=== PATIENT | male | born 1985 | race Caucasian/White ===

== ENCOUNTER 2017-01-02 19:31 | Emergency (ER) | payer OTHER ==
[~2017-01-02] VITALS: Ht 185.4 cm; Wt 100.6 kg
[~2017-01-02 19:31] MED LIST: BACLOFEN10 MG PO; NAPROSYN500 MG PO; NOHOMEMEDS
[2017-01-02 19:44] VITALS: BP 142/85
== END 2017-01-02 22:39 | disposition left against medical advice (07) ==
LOC: EME 19:31
DX: Z04.1 Encounter for examination and observation following transport accident (principal); H92.01 Otalgia, right ear; H91.91 Unspecified hearing loss, right ear; F17.200 Nicotine dependence, unspecified, uncomplicated
CPT/HCPCS: 99281; 99284

== ENCOUNTER 2017-01-03 00:32 | Emergency (ER) | payer OTHER ==
[~2017-01-03] VITALS: Ht 185.4 cm; Wt 101.6 kg
[2017-01-03 01:37] VITALS: BP 124/78
== END 2017-01-03 01:37 | disposition home or self-care (01) ==
LOC: EME 00:32 → EXP 00:32
DX: S09.391A Other specified injury of right middle and inner ear, initial encounter (principal); V89.2XXA Person injured in unspecified motor-vehicle accident, traffic, initial encounter; Y92.410 Unspecified street and highway as the place of occurrence of the external cause; F17.200 Nicotine dependence, unspecified, uncomplicated
CPT/HCPCS: 70450; 99281; 99283

== ENCOUNTER 2017-03-04 18:48 | Emergency (ER) | payer OTHER ==
[~2017-03-04] VITALS: Ht 185.4 cm; Wt 95.5 kg
[2017-03-04 18:51] VITALS: BP 123/77
== END 2017-03-04 19:12 | disposition left against medical advice (07) ==
LOC: EME 18:48
DX: T40.1X1A Poisoning by heroin, accidental (unintentional), initial encounter (principal); F11.10 Opioid abuse, uncomplicated; Z53.21 Procedure and treatment not carried out due to patient leaving prior to being seen by health care provider
CPT/HCPCS: J2310